=== PATIENT | male | born 1980 | race African-American/Black ===

== ENCOUNTER 2019-12-30 08:10 | Emergency (ER) | payer BC ==
[~2019-12-30] VITALS: Ht 182.9 cm; Wt 104.3 kg
[2019-12-30 08:17] VITALS: BP 149/86
[2019-12-30] MEDS ORDERED: AMOXICILLIN125 MG ORAL (08:22)
--- NOTE | 2019-12-30 08:25 | NUR ---
ED Nurse Note: patient walked into ED from home c/o migraine and sinusitis for 2 weeks. patient reports he recently seen physician for the same symptoms and is taking "amoxicilin" as prescribed. patient is alert awake x4 ambulatory, breathing unlabored and even, speaking in full sentences.
[2019-12-30] MEDS ORDERED: Ketorolac 30mg Inj IM ONE (08:30)
[2019-12-30] MEDS ORDERED: Acetaminophen 500mg (ES) tab ORAL ONE (08:30)
[2019-12-30] MEDS ORDERED: Metoclopramide 10mg/2ml Inj IM ONE (08:30)
[2019-12-30] MEDS ORDERED: RIBOFLAVIN100 MG PO (08:45)
[2019-12-30] MEDS ORDERED: ZYRTEC10 MG ORAL (08:45)
--- NOTE | 2019-12-30 08:45 | Emergency Room Report ---
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 patient presents for evaluation Allergies: Coded Allergies: No Known Allergies (Unverified , 12/30/19) Patient History Past Medical History: see triage record Reviewed Nursing Documentation: PMH: Agreed; PSxH: Agreed Nursing Documentation-PMH Past Medical History: No History, Except For Review of Systems All Other Systems: negative except mentioned in HPI Physical Exam Vital Signs Date Time Temp Pulse Resp B/P (MAP) Pulse Ox O2 Delivery O2 Flow Rate FiO2 12/30/19 08:17 98.2 81 18 149/86 96 Room Air Sp02 EP Interpretation: reviewed, normal General Appearance: well appearing, no apparent distress, alert Head: normocephalic, atraumatic Eyes: bilateral eye PERRL, bilateral eye EOMI ENT: uvula midline, moist mucus membranes, nasal congestion Neck: supple, thyroid normal, supple/symm/no masses Respiratory: lungs clear, no respiratory distress, no retraction, no accessory muscle use Cardiovascular #1: normal peripheral pulses, regular rate, rhythm, no edema, no gallop, no murmur Gastrointestinal: non tender, soft, no guarding, no rebound Musculoskeletal: normal inspection Neurologic: alert, oriented x3 Psychiatric: mood/affect normal Skin: no rash, warm/dry Medical Decision Making Diagnostic Impression: Primary Impression: Upper respiratory infection Qualified Codes: J06.9 - Acute upper respiratory infection, unspecified ER Course 39-year-old male presents with most likely a viral URI, recommend patient not go to work given the risk of spreading it 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 Patient is in no acute distress will provide patient with decongestants Disposition home with return precautions follow-up with PCP Last Vital Signs Date Time Temp Pulse Resp B/P (MAP) Pulse Ox O2 Delivery O2 Flow Rate FiO2 12/30/19 08:17 98.2 81 18 149/86 (107) 96 Room Air Disposition: HOME, SELF-CARE Condition: Stable Scripts Riboflavin (RIBOFLAVIN) 100 Mg Tablet 400 MG PO DAILY, #180 TAB Prov: Sahil Silva MD 3/11/20 Cetirizine Hcl* (ZYRTEC*) 10 Mg Tablet 10 MG ORAL DAILY PRN for CONGESTION, #30 TAB 0 Refills Prov: Sahil Silva MD 12/30/19 Referrals: [facility] Fadi Mcneill. [facility] Departure Forms: Return to Work Return to Work Date: Jan 04, 2020 Patient Instructions: Upper Respiratory Infection, Adult, [id number] Additional Instructions: The patient was provided with discharge instructions, notified to follow-up with a primary care doctor and or specialist in the next 24-48 hours, and to return to the ED if they have worsening of their symptoms. Please note that this report is being documented using [employer] technology. This can lead to erroneous entry secondary to incorrect interpretation by the dictating instrument. PLEASE RETURN TO ED IF YOU HAVE WORSENING OF YOUR SYMPTOMS Sahil Silva MD Dec 30, 2019 08:45
[2019-12-30 08:56] VITALS: BP 149/86
--- NOTE | 2019-12-30 08:56 | NUR ---
ER DISCHARGE NOTE: Patient is cleared to be discharged per ERMD DR Silva, pt is aox4, on room air, with stable vital signs. pt was given dc and prescription instructions, pt was able to verbalize understanding, pt id band removed without complications. pt is able to ambulate with steady gait. pt took all belongings.
== END 2019-12-30 09:29 | disposition home or self-care (01) ==
LOC: EMR 08:44
DX: J06.9 Acute upper respiratory infection, unspecified (principal)
CPT/HCPCS: 96372; 99283; J1885; J2765; J8540